=== PATIENT | female | born 1960 | race Caucasian/White ===

== ENCOUNTER 2020-03-28 05:05 | Emergency (ER) | payer OTHER ==
[~2020-03-28] VITALS: Ht 160 cm; Wt 99.8 kg
[2020-03-28 05:05] VITALS: BP_SYST 150
[~2020-03-28 05:05] MED LIST: ALBU17AE26; SYMBACORT
[2020-03-28] MEDS ORDERED: LIDOCAINE/EPI 1% 1:100000 20 ML VIAL INJ ONE ×3 (05:45→07:00)
[2020-03-28] MEDS ORDERED: AMOXICILLIN/CLAVULANATE POTASSIUM 875 MG TABLET PO ONE (06:30)
[2020-03-28 08:41] VITALS: BP_SYST 131
== END 2020-03-28 08:41 | disposition home or self-care (01) ==
LOC: SED 05:05
DX: S41.151A Open bite of right upper arm, initial encounter (principal); S61.452A Open bite of left hand, initial encounter; T14.8XXA Other injury of unspecified body region, initial encounter; W54.0XXA Bitten by dog, initial encounter; Y93.89 Activity, other specified; Y92.89 Other specified places as the place of occurrence of the external cause; Y99.8 Other external cause status
CPT/HCPCS: 12006; 99283

== ENCOUNTER 2020-03-29 10:22 | Emergency (ER) | payer OTHER ==
[~2020-03-29] VITALS: Ht 165.1 cm; Wt 104.3 kg
[2020-03-29 10:26] VITALS: BP_SYST 108
--- NOTE | 2020-03-29 10:26 | NUR ---
Patient to ER bed 3 to gown for evaluation. Side rails up.
--- NOTE | 2020-03-29 10:27 | NUR ---
Patient is awake, alert, and oriented x4. Patient was seen by Dr. Guzmán yesterday morning for dog bites to left hand and right forearm. Dressings were covered in dry blood, she wishes to have bandages changed. She also reports taking Nipomo q6 for pain, currently at a 8/10.
--- NOTE | 2020-03-29 10:30 | NUR ---
ER Dr. Willoughby at bedside examining patient.
[2020-03-29 11:08] VITALS: BP_SYST 108
--- NOTE | 2020-03-29 11:08 | NUR ---
Patient given written and verbal discharge instructions and verbalizes understanding. ER MD discussed with patient the results and treatment provided. Patient in stable condition. ID arm band removed. Patient educated on pain management and to follow up with PMD. Pain Scale 8/10, MD is aware. Opportunity for questions provided and answered. Medication side effect fact sheet provided.
== END 2020-03-29 11:08 | disposition home or self-care (01) ==
LOC: SED 10:22
DX: S41.151A Open bite of right upper arm, initial encounter (principal); S41.152A Open bite of left upper arm, initial encounter; J45.909 Unspecified asthma, uncomplicated; W54.0XXA Bitten by dog, initial encounter; Y93.89 Activity, other specified; Y92.89 Other specified places as the place of occurrence of the external cause; Y99.8 Other external cause status
CPT/HCPCS: 99282

== ENCOUNTER 2020-04-01 20:33 | Emergency (ER) | payer OTHER ==
[~2020-04-01] VITALS: Ht 160 cm; Wt 102.1 kg
[2020-04-01 20:40] VITALS: BP_SYST 144
[2020-04-01] MEDS ORDERED: BACITRACIN 1 GM OINT TP ONE (22:00)
[2020-04-01 22:30] VITALS: BP_SYST 136
== END 2020-04-01 22:30 | disposition home or self-care (01) ==
LOC: SED 20:33
DX: S40.021A Contusion of right upper arm, initial encounter (principal); J45.909 Unspecified asthma, uncomplicated; W54.0XXA Bitten by dog, initial encounter; Y93.89 Activity, other specified; Y92.89 Other specified places as the place of occurrence of the external cause; Y99.8 Other external cause status
CPT/HCPCS: 99282